=== PATIENT | female | born 1990 | race American Indian/Alaskan Native ===

== ENCOUNTER 2017-09-08 08:02 | Emergency (ER) | payer MEDICAID ==
[2017-09-08 08:13] VITALS: BP 118/78
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
--- NOTE | 2017-09-08 09:43 | XRay Report ---
RIGHT FINGER RADIOGRAPHS INDICATION: Right middle finger swelling. COMPARISON: None similar at this institution. FINDINGS: An AP view of the right hand with oblique and lateral projections of the right third digit demonstrate mild spurring medially at the base of the third distal phalanx and mild diffuse finger swelling. No radiopaque foreign body. Normal remainder exam. CONCLUSION: Right third DIP joint mild spurring and mild diffuse finger soft tissue swelling suspected, as described. Please correlate. Thank you for the opportunity to participate in this patient's care.
[2017-09-08] MEDS ORDERED: TYLENOL PO ONE (10:14)
== END 2017-09-08 10:41 | disposition home or self-care (01) ==
LOC: ED 08:02
DX: M25.541 Pain in joints of right hand (principal); M79.644 Pain in right finger(s)

== ENCOUNTER 2019-05-25 00:19 | Inpatient (IN) | payer MEDICAID, OTHER ==
[2019-05-25] MEDS ORDERED: MINERAL OIL 30 ML ORAL LIQD PO PRN (00:57)
[2019-05-25] MEDS ORDERED: TERBUTALINE 1 MG/1 ML INJ SUB-Q PRN (00:57)
[2019-05-25] MEDS ORDERED: TERBUTALINE 1 MG/1 ML INJ IVP PRN (00:57)
[2019-05-25] MEDS ORDERED: ePHEDrine SULFATE 50 MG/1 ML INJ IV PRN (00:57)
[2019-05-25] MEDS ORDERED: BUTORPHANOL 2 MG/1 ML INJ IV PRN (00:57)
[2019-05-25] MEDS ORDERED: LIDOCAINE (2%) 20 MG/1 ML VIAL 20 ML MDV INFILTRATI ONE (00:57)
[2019-05-25] MEDS ORDERED: LACTATED RINGERS 1,000 ML IV SCH (01:00)
[2019-05-25] MEDS ORDERED: OXYTOCIN 20 UNIT/1000ML DRIP 20 UNITS/1,000 ML BAG IV SCH ×2 (01:00→06:00)
[2019-05-25] MEDS: fentaNYL 100 MCG/2 ML INJ IV PRN ×2 (01:33→03:58)
[2019-05-25 01:41] LABS: Hematocrit 32.8 % (30.3-42.9); Hemoglobin 10.7 gm/dl (10.1-14.3); Mean Corpuscular HGB Conc 33 % (30-34); Mean Corpuscular Volume 79 fl (79-97); Platelet Count 153 K/mm3 (140-440); Red Blood Count 4.16 M/mm3 (3.65-5.03); Red Cell Distribution Width 14.2 % (13.2-15.2)
[2019-05-25 02:04] LABS: Hepatitis C Virus Antibody Non-Reactive (NonReactive)
[2019-05-25 02:06] LABS: Amphetamine Screen,Urine PRESUMPTIVE NEGATIVE; Benzodiazepines Screen,Urine PRESUMPTIVE NEGATIVE; Cannabinoid Screen,Urine PRESUMPTIVE NEGATIVE; Cocaine Screen,Urine PRESUMPTIVE NEGATIVE; Methadone Screen,Urine PRESUMPTIVE NEGATIVE; Opiate Screen,Urine PRESUMPTIVE NEGATIVE
--- NOTE | 2019-05-25 05:02 | History and Physical Report ---
History of Present Illness Date of examination: 05/25/19 Date of admission: 05/25/19 00:38 History of present illness: PT is a walk in pt who has care elsewhere who presents in labor. Pt with ctxs and 5 cm on admission. No LOF or VB. Good FM. Pt denies any issues during the but has not seen by her provider since march. Past History Past Surgical History: no surgical history Social history: no significant social history - Obstetrical History Expected Date of Delivery: 05/24/19 Actual Gestation: 40 Week(s) 1 Day(s) : 4 Para: 3 Hx # Term Pregnancies: 3 Number of Living Children: 3 Medications and Allergies Allergies Allergy/AdvReac Type Severity Reaction Status Date / Time Penicillins Allergy Anaphylaxis Verified 05/25/19 00:56 Home Medications Medication Instructions Recorded Confirmed Last Taken Type Acetaminophen [Acetaminophen TAB] 500 mg PO TID #30 tablet 09/08/17 Unknown Rx Active Meds: Active Medications Butorphanol Tartrate (Stadol) 2 mg IV Q2H PRN PRN Reason: Pain , Severe (7-10) Ephedrine Sulfate (Ephedrine Sulfate) 10 mg IV Q2M PRN PRN Reason: Hypotension Fentanyl (Sublimaze) 100 mcg IV Q2H PRN PRN Reason: Labor Pain Last Admin: 05/25/19 03:58 Dose: 100 mcg Documented by: Oxytocin/Sodium Chloride (Pitocin/Ns 20 Unit/1000ml Drip) 20 units in 1,000 mls @ 125 mls/hr IV DIRECT RAND Lactated Ringer's (Lactated Ringers) 1,000 mls @ 125 mls/hr IV DIRECT RAND Clindamycin HCl (Cleocin 900 Mg/50 Ml) 900 mg in 50 mls @ 100 mls/hr IV Q8H [facility]; Protocol Last Admin: 05/25/19 01:33 Dose: 100 mls/hr Documented by: Mineral Oil (Mineral Oil) 30 ml PO QHS PRN PRN Reason: Constipation Terbutaline Sulfate (Brethine) 0.25 mg SUB-Q ONCE PRN PRN Reason: Hyperstimulation/Hypertonicity Terbutaline Sulfate (Brethine) 0.25 mg IVP ONCE PRN PRN Reason: Hyperstimulation/Hypertonicity Review of Systems All systems: negative (except HPI) - Vital Signs Vital signs: Vital Signs Temp Resp 98.2 F 20 05/25/19 00:20 05/25/19 00:20 Temp Pulse Resp BP Pulse Ox 98.2 F 76 18 125/78 05/25/19 00:20 05/25/19 04:29 05/25/19 01:33 05/25/19 04:29 - Physical Exam Abdomen: Positive: normal appearance, soft. Negative: tenderness - Obstetrical FHR: category 1 Uterine Contraction Monitor Mode: External Uterine Contraction Pattern: Regular Uterine Contraction Intensity: Strong/Firm Results Result Diagrams: 05/25/19 00:45 Abnormal lab results 05/25/19 Range/Units 00:45 WBC 4.3 L (4.5-11.0) K/mm3 MCH 26 L (28-32) pg All other labs normal. Assessment and Plan - Patient Problems (1) Active labor at term Current Visit: Yes Status: Acute Plan to address problem: expectant care.
[2019-05-25] MEDS ORDERED: LANOLIN/ZINC/DIMETHICONE (LANSINOH) 7 GM TP PRN ×2 (05:33)
[2019-05-25] MEDS ORDERED: WITCH HAZEL/ GLYCERIN PAD TP PRN (05:33)
[2019-05-25] MEDS ORDERED: MAGNESIUM HYDROXIDE (MOM) ORAL LIQD UDC PO PRN (05:33)
[2019-05-25] MEDS ORDERED: PROMETHAZINE 25 MG RECT SUPP PR PRN (05:33)
[2019-05-25] MEDS ORDERED: BENZOCAINE/MENTHOL 20/0.5% TOP SPRAY 56 GM TP PRN (05:33)
[2019-05-25] MEDS ORDERED: ACETAMINOPHEN 325 MG TAB PO PRN (05:33)
[2019-05-25] MEDS ORDERED: diphenhydrAMINE 25 MG CAP PO PRN (05:33)
[2019-05-25] MEDS ORDERED: PROMETHAZINE 25 MG TAB PO PRN (05:33)
[2019-05-25] MEDS ORDERED: ONDANSETRON 4 MG/2 ML INJ IV PRN (05:33)
--- NOTE | 2019-05-25 05:40 | Procedure Note ---
OB Delivery Note - Delivery Date of Delivery: 05/25/19 Surgeon: ALYSA PHILIP Estimated blood loss: 200cc - Vaginal Delivery position: OA Intrapartum events: meconium Delivery induction: none Delivery augmentation: rupture of membranes Delivery monitor: external FHT Route of delivery: Delivery placenta: spontaneous Delivery cord: 3 umbilical vessels Episiotomy: none Delivery laceration: none Anesthesia: none Delivery comments: Anterior shoulder delivered without difficulty. Baby bulb suctioned at the perineum and again after delivery. Cord was clamped and cut and baby sent to the warmer. Placenta delivered spontaneously after the cord blood was obtained. No lacerations noted. Good hemostasis. Mother and baby are stable. - A at 1 minute: 8 at 5 minutes: 9 Infant Gender: Female
[2019-05-25] MEDS: IBUPROFEN 600 MG TAB PO SCH ×2 (05:47→14:10)
[2019-05-25] MEDS ORDERED: OXYTOCIN 10 UNIT/1 ML INJ ONE (05:48)
[2019-05-25] MEDS: HYDROcodone/ACETAMINOPHEN 5-325 MG TAB PO PRN ×2 (10:42→17:04)
[2019-05-25] MEDS: SENNOSIDES/DOCUSATE SODIUM 8.6/50 MG TAB PO SCH (17:05)
[2019-05-26] MEDS: IBUPROFEN 600 MG TAB PO SCH ×4 (00:14→16:59)
[2019-05-26] MEDS: SENNOSIDES/DOCUSATE SODIUM 8.6/50 MG TAB PO SCH ×2 (06:07→17:07)
[2019-05-26 08:18] LABS: Hematocrit 27.8 % (30.3-42.9); Hemoglobin 9.1 gm/dl (10.1-14.3)
[2019-05-26] MEDS: FERROUS SULFATE 325 MG TAB PO SCH ×2 (09:44→22:43)
[2019-05-26] MEDS: HYDROcodone/ACETAMINOPHEN 5-325 MG TAB PO PRN ×2 (09:48→20:19)
--- NOTE | 2019-05-26 14:39 | Progress Note ---
Assessment and Plan A: /postop day 1 S/P . Anemia secondary to and blood loss. P: Encouraged ambulation. Iron supplementation. Subjective - Subjective Date of service: 05/26/19 Principal diagnosis: day 1 S/P Interval history: day 1 S/P . Patient is doing well. Reports a small amount of lochia. Voiding without difficulty, ambulating well, tolerating a regular diet, passing gas. Patient denies headache, cough, chest pain, shortness of breath, abdominal pain, leg pain, heavy bleeding, or nausea/vomiting. Patient reports: appetite normal, voiding normally, pain well controlled, flatus, ambulating normally, no dizzy ambulation, no nauseated : doing well Objective - Vital Signs Latest vital signs: Vital Signs Temp Pulse Resp BP Pulse Ox 05/26/19 10:48 18 05/26/19 09:48 18 05/26/19 07:58 98.3 F 63 18 117/76 100 05/26/19 07:08 18 05/26/19 06:08 18 05/26/19 01:14 18 05/26/19 00:14 18 05/25/19 23:56 97.5 F L 70 20 101/61 100 05/25/19 18:07 98.1 F 77 18 115/68 100 Intake and Output 05/25/19 05/26/19 05/26/19 23:59 07:59 15:59 Intake Total 960 240 240 Balance 960 240 240 Intake: Oral 480 240 240 Intake, Free Water 480 Other: Total, Intake Amount 480 240 240 # Voids Void 1 1 - Exam Cardiovascular: Present: Regular rate, Normal S1, Normal S2 Lungs: Present: Clear to auscultation Abdomen: Present: normal appearance, soft, normal bowel sounds. Absent: distention, tenderness, guarding, rigidity Uterus: Present: normal, firm, fundal height below umbilicus. Absent: bogginess, tenderness Extremities: Present: normal. Absent: tenderness, edema - Labs Labs: Abnormal lab results 05/26/19 Range/Units 07:37 Hgb 9.1 L (10.1-14.3) gm/dl Hct 27.8 L (30.3-42.9) %
[2019-05-27] MEDS: IBUPROFEN 600 MG TAB PO SCH ×3 (00:57→11:22)
[2019-05-27] MEDS: SENNOSIDES/DOCUSATE SODIUM 8.6/50 MG TAB PO SCH (07:05)
--- NOTE | 2019-05-27 10:34 | Progress Note ---
Assessment and Plan A: day 2 S/P spontaneous vaginal delivery. Anemia secondary to and blood loss. P: Discharge patient home today. discharge instructions and warning signs discussed with patient. Advised patient to continue taking her vitamins and iron supplements at home. Advised patient to avoid intercourse, lifting and heavy housework and driving. Advised patient to follow up at [facility] in 6 weeks for exam (advised patient to call the office tomorrow morning to obtain an appointment). Patient voiced understanding of all instructions. Subjective - Subjective Date of service: 05/27/19 Principal diagnosis: day 2 S/P Interval history: day 2 S/P . Patient desires discharge today. Patient is doing well. Reports a small amount of lochia. Voiding without difficulty, ambulating well, tolerating a regular diet, passing gas. Patient denies headache, cough, chest pain, shortness of breath, dizziness, fatigue, abdominal pain, leg pain, heavy bleeding, or nausea/vomiting. Patient reports: appetite normal, voiding normally, pain well controlled, flatus, ambulating normally, no dizzy ambulation, no nauseated : doing well Objective - Vital Signs Latest vital signs: Vital Signs Temp Pulse Resp BP BP Pulse Ox 05/27/19 09:05 98.0 F 68 18 124/75 100 05/27/19 00:00 98.3 F 72 20 128/71 99 05/26/19 18:03 98.3 F 65 18 123/76 100 05/26/19 10:48 18 Intake and Output 05/26/19 05/27/19 05/27/19 23:59 07:59 15:59 Intake Total 1560 600 240 Balance 1560 600 240 Intake: Oral 840 600 240 Intake, Free Water 720 Other: Total, Intake Amount 240 240 240 # Voids Void 4 1 1 - Exam Cardiovascular: Present: Regular rate, Normal S1, Normal S2 Lungs: Present: Clear to auscultation Abdomen: Present: normal appearance, soft, normal bowel sounds. Absent: distention, tenderness, guarding, rigidity Uterus: Present: normal, firm, fundal height below umbilicus. Absent: bogginess, tenderness Extremities: Present: normal. Absent: tenderness, edema
--- NOTE | 2019-05-27 10:37 | Discharge Summary ---
Providers - Providers Date of Admission: 05/25/19 00:38 Date of discharge: 05/27/19 Attending physician: ALYSA PHILIP Primary care physician: ALYSA PHILIP Hospitalization Reason for admission: active labor Delivery: Episiotomy: none Other procedures: none complications: none Discharge diagnosis: IUP at term delivered baby: female Pertinent studies: Labs Hospital course: Normal hospital course. Condition at discharge: Good Disposition: DC-01 TO HOME OR SELFCARE - Discharge Diagnoses (1) Term delivered Status: Acute (2) Anemia due to blood loss Status: Acute Plan - Provider Discharge Summary Activity: routine, no sex for 6 weeks, no heavy lifting 4 weeks, no strenuous exercise Diet: routine Instructions: routine Additional instructions: Continue taking your vitamins and iron supplements at home. Call your doctor immediately for: * Fever > 100.5 * Heavy vaginal bleeding ( >1 pad per hour) * Severe persistent headache * Shortness of breath * Reddened, hot, painful area to leg or breast - Follow up plan Follow up: ALYSA PHILIP MD [Primary Care Provider] - 6 Weeks Forms: [facility] Discharge Summary
[2019-05-27] MEDS: FERROUS SULFATE 325 MG TAB PO SCH (11:22)
[2019-05-27 16:10] VITALS: BP 135/83
== END 2019-05-27 16:00 | disposition home or self-care (01) | DRG 807 ==
LOC: TRG 00:19 → LD 00:38 → OB 09:18
PROVIDERS: ADMIT Obstetrics & Gynecology; ATTEND Obstetrics & Gynecology
PROC: 10E0XZZ Delivery of Products of Conception, External Approach (ICD-10-PCS; principal; 2019-05-25)
DX: O77.0 Labor and delivery complicated by meconium in amniotic fluid (principal); Z37.0 Single live birth; O99.02 Anemia complicating childbirth; D50.0 Iron deficiency anemia secondary to blood loss (chronic); Z88.0 Allergy status to penicillin; Z3A.40 40 weeks gestation of pregnancy
CPT/HCPCS: 36415; 80307; 85014; 85018; 85027; 86592; 86706; 86762; 86803; 86850; 86900; 86901; 87806; G0378; J2590; J3010; J7120